=== PATIENT | female | born 1980 | race Caucasian/White ===

== ENCOUNTER 2024-01-06 23:29 | Inpatient (IN) ==
[2024-01-06] MEDS ORDERED: IOPAMIDOL 100 ML BOTTLE IV ONE (23:30)
[2024-01-07] MEDS: KETOROLAC 15 MG/ML VIAL IV ONE (00:02)
[2024-01-07] MEDS: 0.9 % SODIUM CHLORIDE 1,000 ML IV ONE ×2 (00:02→10:30)
[2024-01-07] MEDS: ONDANSETRON 4 MG/2 ML VIAL IV ONE (00:03)
[2024-01-07 00:23] LABS: Basophils # (Auto) 0.06 K/mcL (0.00-0.30); Basophils % (Auto) 0.5 % (0.0-2.0); Eosinophils # (Auto) 0.02 K/mcL (0.00-0.70); Eosinophils % (Auto) 0.2 % (0.0-7.0); Hematocrit 37.5 % (34.1-44.9); Hemoglobin 12.5 g/dL (11.2-15.7); Lymphocytes # (Auto) 1.39 K/mcL (1.50-4.80); Lymphocytes % (Auto) 12.5 % (15.5-49.0); Mean Corpuscular HGB Conc 33.3 g/dL (31.0-36.0); Mean Platelet Volume 10.4 fL (8.8-12.5); Monocytes # (Auto) 0.63 K/mcL (0.10-0.90); Monocytes % (Auto) 5.7 % (1.0-12.0); Neutrophils % (Auto) 80.7 % (38.0-78.0); Platelet Count 324 K/mcL (140-440); RBC 3.26 M/mcL (3.59-5.38); Red Cell Distribution Width 13.4 % (11.5-14.5); WBC 11.2 K/mcL (4.5-11.0)
[2024-01-07 00:46] LABS: HCG,Serum Negative
[2024-01-07 00:55] LABS: ALT/SGPT 41 U/L (<40); AST/SGOT 98 U/L (<32); Albumin 3.6 gm/dL (3.2-5.2); Albumin/Globulin Ratio 1.2 (1.0-2.3); Alkaline Phosphatase 274 U/L (39-117); Bilirubin,Total 5.7 mg/dL (0.1-1.0); Blood Urea Nitrogen 3 mg/dL (6-20); Calcium 8.8 mg/dL (8.6-10.4); Carbon Dioxide 25 mmol/L (22-30); Chloride 94 mmol/L (96-108); Glomerular Filtration Rate 119; Glucose 111 mg/dL (70-105)
[2024-01-07] MEDS: fentaNYL 100 MCG/2 ML VIAL IV ONE ×2 (00:59→02:23)
[2024-01-07] MEDS: POTASSIUM CHLORIDE 20 MEQ/10 ML VIAL IV ONE (01:31)
[2024-01-07] MEDS: POTASSIUM CHLORIDE 20 MEQ TABLET PO ONE (01:32)
[2024-01-07] MEDS: POTASSIUM CHLORIDE 40 MEQ in DEXTROSE 5% IN WATER 500 ML IV ONE (01:32)
[2024-01-07 04:43] LABS: Appearance,Urine CLEAR (Clear); Bilirubin,Urine Negative (Negative); Color,Urine AMBER; Culture Indicated,Urine No; Glucose,Urine (UA) Negative (Negative); Ketones,Urine 20 mg/dL (Negative); Leukocyte Esterase,Urine Negative /uL (Negative); Nitrate,Urine Negative (Negative); Protein,Urine Negative (Negative); Urine Blood Negative ery/mcL (Negative)
[2024-01-07] MEDS: morphine 4 MG/ML VIAL IV ONE ×3 (05:01→07:50)
[2024-01-07] MEDS: HYDROmorphone 1 MG/ML SYRINGE IV ONE (09:21)
[2024-01-07 10:04] LABS: INR 1.4 (0.9-1.1); Prothrombin Time 17.7 sec (11.9-14.5)
[2024-01-07] MEDS: HYDROmorphone 1 MG/ML SYRINGE IV PRN (11:02)
[2024-01-07 11:33] LABS: Basophils # (Auto) 0.07 K/mcL (0.00-0.30); Basophils % (Auto) 0.5 % (0.0-2.0); Eosinophils % (Auto) 0.7 % (0.0-7.0); Hematocrit 36.2 % (34.1-44.9); Hemoglobin 11.7 g/dL (11.2-15.7); Lymphocytes # (Auto) 2.49 K/mcL (1.50-4.80); Lymphocytes % (Auto) 18.1 % (15.5-49.0); Mean Cell Volume 117.5 fL (80.0-100.0); Mean Corpuscular HGB Conc 32.3 g/dL (31.0-36.0); Mean Platelet Volume 10.1 fL (8.8-12.5); Monocytes % (Auto) 6.6 % (1.0-12.0); Neutrophils % (Auto) 73.8 % (38.0-78.0); Platelet Count 366 K/mcL (140-440); RBC 3.08 M/mcL (3.59-5.38); Red Cell Distribution Width 13.5 % (11.5-14.5); WBC 13.7 K/mcL (4.5-11.0)
[2024-01-07 11:48] LABS: ALT/SGPT 28 U/L (<40); AST/SGOT 79 U/L (<32); Albumin 3.3 gm/dL (3.2-5.2); Albumin/Globulin Ratio 1.2 (1.0-2.3); Alkaline Phosphatase 243 U/L (39-117); Bilirubin,Total 5.3 mg/dL (0.1-1.0); Blood Urea Nitrogen 3 mg/dL (6-20); Calcium 8.4 mg/dL (8.6-10.4); Carbon Dioxide 21 mmol/L (22-30); Chloride 99 mmol/L (96-108); Globulin 2.7 gm/dL (2.2-3.7); Glomerular Filtration Rate 119; Glucose 100 mg/dL (70-105)
[2024-01-07] MEDS ORDERED: ACETAMINOPHEN 160 MG/5 ML ORAL.SOL PO PRN (12:23)
[2024-01-07] MEDS: LACTATED RINGERS 1,000 ML IV SCH (12:34)
[2024-01-07] MEDS: oxyCODONE IR 5 MG TABLET PO PRN (12:37)
[2024-01-07] MEDS: HYDROmorphone 0.5 MG/0.5 ML SYRINGE IV PRN (13:59)
[2024-01-07] MEDS: 0.9 % SODIUM CHLORIDE 10 ML SYRINGE IV SCH (14:04)
[2024-01-07 18:15] LABS: HDL Cholesterol 23 mg/dL (>40); LDL Cholesterol,Calculated 79 mg/dL (<100); Non-HDL Cholesterol 102 mg/dL (<130); Triglycerides 120 mg/dL (<150)
[2024-01-08 06:03] LABS: Basophils # (Auto) 0.11 K/mcL (0.00-0.30); Basophils % (Auto) 0.9 % (0.0-2.0); Eosinophils # (Auto) 0.16 K/mcL (0.00-0.70); Eosinophils % (Auto) 1.3 % (0.0-7.0); Hematocrit 33.6 % (34.1-44.9); Hemoglobin 11.2 g/dL (11.2-15.7); Lymphocytes # (Auto) 2.06 K/mcL (1.50-4.80); Lymphocytes % (Auto) 16.4 % (15.5-49.0); Mean Cell Volume 116.7 fL (80.0-100.0); Mean Corpuscular HGB Conc 33.3 g/dL (31.0-36.0); Monocytes % (Auto) 7.2 % (1.0-12.0); Neutrophils % (Auto) 73.9 % (38.0-78.0); Platelet Count 340 K/mcL (140-440); RBC 2.88 M/mcL (3.59-5.38); Red Cell Distribution Width 13.3 % (11.5-14.5); WBC 12.5 K/mcL (4.5-11.0)
[2024-01-08 06:28] LABS: ALT/SGPT 28 U/L (<40); AST/SGOT 80 U/L (<32); Albumin 3.4 gm/dL (3.2-5.2); Albumin/Globulin Ratio 1.2 (1.0-2.3); Alkaline Phosphatase 269 U/L (39-117); Bilirubin,Total 5.8 mg/dL (0.1-1.0); Blood Urea Nitrogen 3 mg/dL (6-20); Calcium 8.7 mg/dL (8.6-10.4); Carbon Dioxide 22 mmol/L (22-30); Chloride 98 mmol/L (96-108); Globulin 2.8 gm/dL (2.2-3.7); Glomerular Filtration Rate 118; Glucose 107 mg/dL (70-105)
[2024-01-08 06:55] LABS: INR 1.3 (0.9-1.1); Prothrombin Time 16.6 sec (11.9-14.5)
[2024-01-08] MEDS: ACETAMINOPHEN 325 MG TABLET PO PRN (08:30)
[2024-01-08] MEDS: CEFEPIME 2 GM VIAL IV SCH (08:31)
[2024-01-08] MEDS: POTASSIUM CHLORIDE 20 MEQ TABLET PO SCH (08:31)
[2024-01-08] MEDS: ONDANSETRON 4 MG/2 ML VIAL IV PRN (08:31)
[2024-01-08] MEDS: LACTATED RINGERS 1,000 ML IV ONE (08:32)
[2024-01-08] MEDS: metroNIDAZOLE 500 MG/100 ML BAG IV SCH (09:25)
[2024-01-08 14:39] LABS: Hematocrit 31.7 % (34.1-44.9); Hemoglobin 10.5 g/dL (11.2-15.7)
[2024-01-08] MEDS ORDERED: IOPAMIDOL 100 ML BOTTLE IV ONE (14:49)
[2024-01-08 21:05] LABS: Hematocrit 31.5 % (34.1-44.9); Hemoglobin 10.3 g/dL (11.2-15.7)
[2024-01-08 21:25] LABS: Blood Urea Nitrogen 3 mg/dL (6-20); Calcium 8.5 mg/dL (8.6-10.4); Carbon Dioxide 22 mmol/L (22-30); Chloride 97 mmol/L (96-108); Glomerular Filtration Rate 112; Glucose 128 mg/dL (70-105)
[2024-01-08] MEDS: LACTATED RINGERS 1,000 ML IV SCH (22:00)
[2024-01-09] MEDS: POTASSIUM CHLORIDE 20 MEQ TABLET PO ONE ×2 (01:23→02:39)
[2024-01-09 06:33] LABS: Basophils # (Auto) 0.08 K/mcL (0.00-0.30); Basophils % (Auto) 1.3 % (0.0-2.0); Eosinophils # (Auto) 0.09 K/mcL (0.00-0.70); Eosinophils % (Auto) 1.5 % (0.0-7.0); Hematocrit 30.9 % (34.1-44.9); Hemoglobin 10.1 g/dL (11.2-15.7); Lymphocytes # (Auto) 1.15 K/mcL (1.50-4.80); Lymphocytes % (Auto) 18.7 % (15.5-49.0); Mean Cell Volume 117.9 fL (80.0-100.0); Mean Corpuscular HGB Conc 32.7 g/dL (31.0-36.0); Mean Platelet Volume 10.3 fL (8.8-12.5); Monocytes # (Auto) 0.42 K/mcL (0.10-0.90); Monocytes % (Auto) 6.8 % (1.0-12.0); Neutrophils % (Auto) 71.4 % (38.0-78.0); Platelet Count 221 K/mcL (140-440); RBC 2.62 M/mcL (3.59-5.38); Red Cell Distribution Width 13.1 % (11.5-14.5); WBC 6.2 K/mcL (4.5-11.0)
[2024-01-09 06:46] LABS: ALT/SGPT 29 U/L (<40); AST/SGOT 88 U/L (<32); Albumin 3.2 gm/dL (3.2-5.2); Albumin/Globulin Ratio 1.2 (1.0-2.3); Alkaline Phosphatase 247 U/L (39-117); Bilirubin,Total 4.4 mg/dL (0.1-1.0); Blood Urea Nitrogen 3 mg/dL (6-20); Calcium 8.4 mg/dL (8.6-10.4); Carbon Dioxide 23 mmol/L (22-30); Chloride 100 mmol/L (96-108); Globulin 2.7 gm/dL (2.2-3.7); Glomerular Filtration Rate 118; Glucose 102 mg/dL (70-105)
[2024-01-10 06:36] LABS: Basophils # (Auto) 0.09 K/mcL (0.00-0.30); Basophils % (Auto) 1.4 % (0.0-2.0); Eosinophils # (Auto) 0.09 K/mcL (0.00-0.70); Eosinophils % (Auto) 1.4 % (0.0-7.0); Hemoglobin 10.6 g/dL (11.2-15.7); Lymphocytes # (Auto) 0.89 K/mcL (1.50-4.80); Mean Cell Volume 116.6 fL (80.0-100.0); Mean Corpuscular HGB Conc 32.1 g/dL (31.0-36.0); Monocytes # (Auto) 0.44 K/mcL (0.10-0.90); Monocytes % (Auto) 6.9 % (1.0-12.0); Neutrophils % (Auto) 75.7 % (38.0-78.0); Platelet Count 272 K/mcL (140-440); RBC 2.83 M/mcL (3.59-5.38); Red Cell Distribution Width 13.2 % (11.5-14.5); WBC 6.4 K/mcL (4.5-11.0)
[2024-01-10 06:58] LABS: ALT/SGPT 35 U/L (<40); AST/SGOT 104 U/L (<32); Albumin 3.5 gm/dL (3.2-5.2); Albumin/Globulin Ratio 1.2 (1.0-2.3); Alkaline Phosphatase 253 U/L (39-117); Bilirubin,Total 4.6 mg/dL (0.1-1.0); Blood Urea Nitrogen 2 mg/dL (6-20); Calcium 8.8 mg/dL (8.6-10.4); Carbon Dioxide 24 mmol/L (22-30); Chloride 97 mmol/L (96-108); Globulin 2.9 gm/dL (2.2-3.7); Glomerular Filtration Rate 118; Glucose 124 mg/dL (70-105)
[2024-01-10] MEDS: POTASSIUM CHLORIDE 20 MEQ TABLET PO ONE ×2 (09:22→14:12)
[2024-01-10] MEDS: CIPROFLOXACIN 400 MG/200 ML BAG IV SCH (10:16)
[2024-01-10] MEDS: FUROSEMIDE 40 MG/4 ML VIAL IV ONE ×3 (10:17→21:43)
[2024-01-10] MEDS ORDERED: HYDROmorphone 1 MG/ML SYRINGE IV PRN (16:52)
[2024-01-10] MEDS: HYDROmorphone 2 MG TABLET PO PRN (17:50)
[2024-01-10] MEDS: HYDROmorphone 0.5 MG/0.5 ML SYRINGE IV PRN (18:54)
[2024-01-10] MEDS: oxyCODONE IR 5 MG TABLET PO PRN (20:40)
[2024-01-10] MEDS: POTASSIUM CHLORIDE 20 MEQ/10 ML VIAL IV ONE (21:40)
[2024-01-10] MEDS: POTASSIUM CHLORIDE 40 MEQ in DEXTROSE 5% IN WATER 500 ML IV ONE (22:15)
[2024-01-11 06:21] LABS: Basophils # (Auto) 0.07 K/mcL (0.00-0.30); Eosinophils # (Auto) 0.11 K/mcL (0.00-0.70); Eosinophils % (Auto) 1.6 % (0.0-7.0); Hematocrit 31.2 % (34.1-44.9); Hemoglobin 10.1 g/dL (11.2-15.7); Lymphocytes # (Auto) 1.14 K/mcL (1.50-4.80); Lymphocytes % (Auto) 16.9 % (15.5-49.0); Mean Cell Volume 116.4 fL (80.0-100.0); Mean Corpuscular HGB Conc 32.4 g/dL (31.0-36.0); Mean Platelet Volume 10.2 fL (8.8-12.5); Monocytes % (Auto) 8.9 % (1.0-12.0); Neutrophils % (Auto) 71.5 % (38.0-78.0); Platelet Count 251 K/mcL (140-440); RBC 2.68 M/mcL (3.59-5.38); Red Cell Distribution Width 13.1 % (11.5-14.5); WBC 6.8 K/mcL (4.5-11.0)
[2024-01-11 06:50] LABS: ALT/SGPT 34 U/L (<40); AST/SGOT 88 U/L (<32); Albumin 3.3 gm/dL (3.2-5.2); Albumin/Globulin Ratio 1.2 (1.0-2.3); Alkaline Phosphatase 218 U/L (39-117); Blood Urea Nitrogen < 2 mg/dL (6-20); Calcium 8.3 mg/dL (8.6-10.4); Carbon Dioxide 26 mmol/L (22-30); Chloride 97 mmol/L (96-108); Globulin 2.7 gm/dL (2.2-3.7); Glomerular Filtration Rate 118; Glucose 155 mg/dL (70-105)
[2024-01-11] MEDS: CIPROFLOXACIN 500 MG TABLET PO SCH (08:51)
[2024-01-11] MEDS: POTASSIUM CHLORIDE 20 MEQ TABLET PO ONE ×3 (08:54→20:21)
[2024-01-11] MEDS: oxyCODONE IR 5 MG TABLET PO PRN (10:28)
[2024-01-11] MEDS: HYDROmorphone 0.5 MG/0.5 ML SYRINGE IV PRN ×2 (12:13→20:20)
[2024-01-11] MEDS: FUROSEMIDE 40 MG/4 ML VIAL IV SCH (13:42)
[2024-01-11] MEDS: metroNIDAZOLE 500 MG TABLET PO SCH (13:42)
[2024-01-11 18:54] LABS: Blood Urea Nitrogen < 2 mg/dL (6-20); Calcium 8.2 mg/dL (8.6-10.4); Carbon Dioxide 27 mmol/L (22-30); Chloride 97 mmol/L (96-108); Glomerular Filtration Rate 118; Glucose 121 mg/dL (70-105)
[2024-01-11] MEDS: POTASSIUM CHLORIDE 40 MEQ in DEXTROSE 5% IN WATER 500 ML IV ONE (21:16)
[2024-01-11] MEDS: POTASSIUM CHLORIDE 20 MEQ/10 ML VIAL IV ONE ×2 (21:22)
[2024-01-12] MEDS: POTASSIUM CHLORIDE 20 MEQ TABLET PO ONE ×3 (04:29→08:20)
[2024-01-12 06:36] LABS: Basophils # (Auto) 0.06 K/mcL (0.00-0.30); Basophils % (Auto) 0.9 % (0.0-2.0); Eosinophils # (Auto) 0.13 K/mcL (0.00-0.70); Eosinophils % (Auto) 1.9 % (0.0-7.0); Hematocrit 31.8 % (34.1-44.9); Hemoglobin 10.2 g/dL (11.2-15.7); Lymphocytes # (Auto) 1.17 K/mcL (1.50-4.80); Lymphocytes % (Auto) 17.2 % (15.5-49.0); Mean Cell Volume 115.6 fL (80.0-100.0); Mean Corpuscular HGB Conc 32.1 g/dL (31.0-36.0); Mean Platelet Volume 10.2 fL (8.8-12.5); Monocytes # (Auto) 0.61 K/mcL (0.10-0.90); Neutrophils % (Auto) 70.6 % (38.0-78.0); Platelet Count 272 K/mcL (140-440); RBC 2.75 M/mcL (3.59-5.38); Red Cell Distribution Width 13.4 % (11.5-14.5); WBC 6.8 K/mcL (4.5-11.0)
[2024-01-12 06:48] LABS: ALT/SGPT 31 U/L (<40); AST/SGOT 83 U/L (<32); Albumin 3.4 gm/dL (3.2-5.2); Albumin/Globulin Ratio 1.3 (1.0-2.3); Alkaline Phosphatase 198 U/L (39-117); Bilirubin,Total 3.9 mg/dL (0.1-1.0); Blood Urea Nitrogen < 2 mg/dL (6-20); Calcium 8.5 mg/dL (8.6-10.4); Carbon Dioxide 27 mmol/L (22-30); Chloride 95 mmol/L (96-108); Globulin 2.6 gm/dL (2.2-3.7); Glomerular Filtration Rate 118; Glucose 124 mg/dL (70-105)
[2024-01-12] MEDS: POTASSIUM CHLORIDE 20 MEQ TABLET PO SCH (10:27)
[2024-01-12] MEDS: FUROSEMIDE 40 MG/4 ML VIAL IV ONE (10:57)
[2024-01-12 18:49] LABS: Blood Urea Nitrogen < 2 mg/dL (6-20); Calcium 8.5 mg/dL (8.6-10.4); Carbon Dioxide 27 mmol/L (22-30); Chloride 96 mmol/L (96-108); Glomerular Filtration Rate 128; Glucose 146 mg/dL (70-105)
[2024-01-13 07:09] LABS: ALT/SGPT 29 U/L (<40); AST/SGOT 78 U/L (<32); Albumin 3.5 gm/dL (3.2-5.2); Albumin/Globulin Ratio 1.3 (1.0-2.3); Alkaline Phosphatase 201 U/L (39-117); Bilirubin,Direct 2.5 mg/dL (<0.3); Bilirubin,Total 3.8 mg/dL (0.1-1.0); Blood Urea Nitrogen 2 mg/dL (6-20); Carbon Dioxide 26 mmol/L (22-30); Chloride 98 mmol/L (96-108); Globulin 2.7 gm/dL (2.2-3.7); Glomerular Filtration Rate 118; Glucose 116 mg/dL (70-105); Lactate Dehydrogenase 270 U/L (135-225); Phosphorous 1.9 mg/dL (2.5-4.5); Triglycerides 71 mg/dL (<150)
[2024-01-13] MEDS: POTASSIUM PHOSPHATE 40 MEQ in DEXTROSE 5% IN WATER 500 ML IV ONE (09:13)
== END 2024-01-13 14:22 | disposition home or self-care (01) | DRG 439 ==
LOC: ED 23:29 → MEDSUR 01-07 12:15
PROVIDERS: ADMIT Internal Medicine; ATTEND Internal Medicine